=== PATIENT | male | born 1950 | race Caucasian/White ===

== ENCOUNTER 2021-04-01 16:57 | Emergency (ER) | payer OTHER ==
[~2021-04-01] VITALS: Ht 182.9 cm; Wt 74.8 kg
[~2021-04-01 16:57] MED LIST: ALBU8HFA4; LORATADINE
--- NOTE | 2021-04-01 17:26 | NUR ---
PT IS IN ROOM #2A. DR TAYLOR EVALUATED THE PT.
[2021-04-01] MEDS ORDERED: KETOROLAC TROMETHAMINE 15 MG INJ IM ONE (17:30)
[2021-04-01] MEDS ORDERED: HYDROMORPHONE 1 MG/1 ML DISP.SYRIN IM ONE (17:30)
[2021-04-01] MEDS ORDERED: LORAZEPAM 0.5 MG TABLET PO ONE (17:45)
[2021-04-01] MEDS ORDERED: ONDANSETRON 4 MG/2 ML VIAL IM ONE (17:45)
[2021-04-01] MEDS ORDERED: HYDROMORPHONE 1 MG/1 ML DISP.SYRIN ONE (17:46)
[2021-04-01] MEDS ORDERED: KETOROLAC TROMETHAMINE 15 MG INJ ONE (17:47)
[2021-04-01] MEDS ORDERED: LORAZEPAM 0.5 MG TABLET ONE (17:52)
[2021-04-01] MEDS ORDERED: ONDANSETRON 4 MG/2 ML VIAL ONE (17:53)
[2021-04-01] MEDS ORDERED: CYCL5TAB PO (18:23)
[2021-04-01 18:35] VITALS: BP 121/62
== END 2021-04-01 18:38 | disposition home or self-care (01) ==
LOC: ER 16:57
DX: M54.59 Other low back pain (principal); M48.56XD Collapsed vertebra, not elsewhere classified, lumbar region, subsequent encounter for fracture with routine healing; J45.909 Unspecified asthma, uncomplicated; Z88.0 Allergy status to penicillin; M46.1 Sacroiliitis, not elsewhere classified
CPT/HCPCS: 96372 ×2; 99284; J1170; J1885; J2405; A4663